=== PATIENT | female | born 1940 | race Caucasian/White ===

== ENCOUNTER 2019-11-01 07:02 | Outpatient (CLI) | payer MEDICARE, SELFPAY ==
--- NOTE | ~2019-11-01 | MR_ITS ---
EXAMINATION: MR lumbar spine wo con DATE: 11/01/2019 08:45 INDICATION: Low back pain radiating into the left hip TECHNIQUE: Magnetic resonance imaging (MRI) of the lumbar spine was performed without intravenous con trast. Sequences included sagittal T2-weighted FSE, sagittal T2-weighted FS FSE, sagittal T1-weighted FSE, and axial T2-weighted FSE. COMPARISON: None FINDINGS: 15 degree lumbar levoscoliosis. 2 mm anterolisthesis L5 on S1. 1-2 mm anterolisthesis L3 on L4. Schmo rl's node at the superior endplate of L5. Vertebral body heights are normal. Moderate disc height los s at L4-L5, mild to moderate left-sided predominant disc height loss at L5-S1 and mild to moderate ri ght-sided predominant disc height loss at L2-L3 and L3-L4. Mild disc height loss at L1-L2 and minimal disc height loss at T9-T10 through T12-L1. Fibrovascular degenerative endplate changes at a few leve ls most prominent at the right side of L2-L3. T1 hyperintense hemangiomas at T12, L1 and L5. Marrow s ignal is otherwise unremarkable. The conus medullaris terminates at L1-L2. There is normal signal in the caudal spinal cord. A couple subcentimeter T2 hyperintense right renal cysts. There are numerous scattered colonic diverticula. Paravertebral soft tissues are unremarkable. The following disc levels are specifically discussed: T12-L1: Small central disc protrusion. There is mild bilateral facet joint osteoarthritis. There is n o neural foraminal stenosis. There is mild central canal stenosis. L1-L2: Diffuse disc bulge. There is mild bilateral facet joint osteoarthritis. There is normal bilate ral neural foraminal stenosis. There is mild central canal stenosis. L2-L3: Disc is bulging. There is hypertrophy of the ligamentum flavum. There is mild bilateral facet joint osteoarthritis. There is mild bilateral neural foraminal stenosis. There is mild to moderate ce ntral canal stenosis. There is also narrowing of the left and right lateral recesses. L3-L4: Disc is bulging. There is hypertrophy of the ligamentum flavum. There is mild left and severe right facet joint osteoarthritis. There is mild left and moderate right neural foraminal stenosis. Th ere is mild central canal stenosis. There is also narrowing of the left and right lateral recesses. L4-L5: Disc is bulging. There is hypertrophy of the ligamentum flavum. There is severe bilateral face t joint osteoarthritis. There is moderate bilateral neural foraminal stenosis. There is mild to moder ate central canal stenosis. There is also narrowing of the left and right lateral recesses. L5-S1: Disc is bulging. There is hypertrophy of the ligamentum flavum. Left L5 transverse process is partially sacralized. There is severe bilateral facet joint osteoarthritis. There is mild right and s evere left neural foraminal stenosis. There is mild to moderate central canal stenosis. IMPRESSION: 1. Mild lumbar levoscoliosis with moderate spondylosis most notable for mild to moderate central lizz l stenosis and severe left neural foraminal stenosis at L5-S1. Reviewed, dictated and finalized at location A. IMPRESSION: 1. Mild lumbar levoscoliosis with moderate spondylosis most notable for mild to moderate central canal stenosis and severe left neural foraminal stenosis at L 5-S1.
== END 2019-11-01 07:03 | disposition home or self-care (01) ==
LOC: CHSIMG 07:04
PROVIDERS: PCP Internal Medicine; Visit Provider Internal Medicine
DX: M54.9 Dorsalgia, unspecified (principal)
CPT/HCPCS: 72148

== ENCOUNTER 2019-12-30 15:01 | Outpatient (CLI) | payer MEDICARE, SELFPAY ==
[2019-12-30 15:52] LABS: Lactate Dehydrogenase 188 U/L (81-234)
[2020-01-03 20:52] LABS: Kappa\\Lambda Light Chains 0.04 (0.26-1.65); Lambda Light Chain 352.2 mg/L (5.7-26.3)
[2020-01-04 11:33] LABS: Beta-2-Microglobulin 3.92 mg/L (<=2.51); Immunoglobulin A 56 mg/dL (70-320); Immunoglobulin G 1056 mg/dL (600-1540); Immunoglobulin M 35 mg/dL (50-300)
== END 2019-12-30 15:02 | disposition home or self-care (01) ==
LOC: CHSLAB 15:04
PROVIDERS: PCP Internal Medicine; Visit Provider Internal Medicine Hematology & Oncology
DX: D47.2 Monoclonal gammopathy (principal)
CPT/HCPCS: 36415; 82232; 82784; 83615; 83883; 86335

== ENCOUNTER 2020-01-05 08:15 | Outpatient (CLI) | payer MEDICARE, SELFPAY ==
[2020-01-11 20:14] LABS: Creatinine, 24 Hr Urine 0.76 g/24 h (0.50-2.15); Total Protein/Creatinine Ratio 97 mg/g creat (<115)
== END 2020-01-05 08:16 | disposition home or self-care (01) ==
LOC: CHSLAB 08:18
PROVIDERS: PCP Internal Medicine; Visit Provider Internal Medicine Hematology & Oncology
DX: D47.2 Monoclonal gammopathy (principal)
CPT/HCPCS: 81050; 82570; 84156; 84166

== ENCOUNTER 2020-01-13 14:46 | Outpatient (CLI) | payer MEDICARE, SELFPAY ==
--- NOTE | ~2020-01-13 | XR_ITS ---
EXAMINATION: BONE SURVEY/METASTATIC SURVEY DATE: 01/13/2020 INDICATION: Monoclonal gammopathy of unknown significance TECHNIQUE: A skeletal survey was performed including AP views of the chest, abdomen and pelvis; AP an d lateral/lateral swimmers views of the cervical, thoracic and lumbar spine; lateral view of the skul l, and AP and lateral views of the appendicular skeleton excluding the hands and feet. COMPARISON: None. FINDINGS: No abnormal lytic lesions are identified. There is a bone island in the right proximal tibi a. There is moderate cervical, thoracic, and lumbar spondylosis. Mild polyarticular osteoarthritis is noted. IMPRESSION: 1. No abnormal lytic lesions identified. Reviewed, dictated and finalized at location A.
[2020-01-13 15:27] LABS: Lactate Dehydrogenase 203 U/L (81-234)
== END 2020-01-13 14:47 | disposition home or self-care (01) ==
PROVIDERS: PCP Internal Medicine; Visit Provider Internal Medicine Hematology & Oncology
DX: D47.2 Monoclonal gammopathy (principal)
CPT/HCPCS: 36415; 77075; 83615

== ENCOUNTER 2020-10-24 09:43 | Outpatient (CLI) | payer MEDICARE, SELFPAY ==
--- NOTE | ~2020-10-24 | US_ITS ---
US retroperitoneal comp 10/24/2020 10:03 Procedure: Realtime transabdominal ultrasound of the kidneys and bladder. Indication: Decreased renal function Comparison: No prior studies for comparison. Findings: Renal echotexture is normal bilaterally without hydronephrosis, contour deforming mass. The re is an echogenic focus in the lower pole of the left kidney measuring 4 mm, possibly nonobstructing renal stone. The right kidney measures 8.5 cm and left kidney measures 7.6 cm. Bladder within shankar l limits. Impression: 1: Focal echogenic 4 mm lesion lower pole left kidney, possibly nonobstructing stone. Reviewed, dictated and finalized at location A. Impression: 1: Focal echogenic 4 mm lesion lower pole left kidney, possibly nonobstructing stone.
== END 2020-10-24 09:44 | disposition home or self-care (01) ==
LOC: CHSIMG 09:44
PROVIDERS: PCP Internal Medicine; Visit Provider Internal Medicine
DX: R94.4 Abnormal results of kidney function studies (principal)
CPT/HCPCS: 76770

== ENCOUNTER 2022-01-08 08:00 | Outpatient (CLI) | payer MEDICARE, SELFPAY ==
[2022-01-08 08:15] LABS: Basophils Absolute Auto 0.07 K/mm3 (0.00-0.10); Basophils Percent Auto 0.7 % (0.0-1.0); Eosinophils Absolute Auto 0.11 K/mm3 (0.02-0.50); Eosinophils Percent Auto 1.1 % (1.0-6.0); Hematocrit 36.4 % (35.0-42.0); Hemoglobin 11.6 g/dL (11.7-13.8); Immature Granulocyte Absolute 0.03 K/mm3 (0.00-0.00); Immature Granulocyte Percent A 0.3 % (0.0-0.0); Lymphocytes Absolute Auto 4.23 K/mm3 (1.10-4.50); Lymphocytes Percent Auto 43.8 % (18.0-42.0); Mean Corpuscular HGB Conc 31.9 g/dL (32.0-36.0); Mean Corpuscular Hemoglobin 31.1 pg (27.0-31.0); Mean Corpuscular Volume 97.6 fL (78.0-102.0); Mean Platelet Volume 9.1 fl (9.2-11.8); Monocytes Percent Auto 6.2 % (2.0-11.0); Neutrophils Absolute Auto 4.6 K/mm3 (1.7-7.2); Neutrophils Percent Auto 47.9 % (50.0-70.0); Platelet Count Result 255 K/mm3 (150-420); Red Blood Count 3.73 M/mm3 (4.20-5.40); Red Cell Distribution Width 14.6 % (11.6-14.4); White Blood Count 9.7 K/mm3 (4.8-10.8)
[2022-01-08 08:58] LABS: Alanine Aminotransferase 25 U/L (14-59); Albumin Level 3.7 g/dL (3.4-5.0); Alkaline Phosphatase 75 U/L (46-116); Anion Gap 3 mmol/L (8-16); Aspartate Amino Transferase 19 U/L (15-37); Bilirubin,Total 0.6 mg/dL (0.00-1.00); Blood Urea Nitrogen 16 mg/dL (7-18); Calcium 9.3 mg/dL (8.5-10.1); Carbon Dioxide 32 mmol/L (21-32); Chloride 105 mmol/L (98-108); Estimated Glomerular Filt Rate 42; Glucose 97 mg/dL (70-99); Lactate Dehydrogenase 185 U/L (81-234); Osmolality Calculated 291 mOsm/kg (285-295); Potassium 4.1 mmol/L (3.5-5.1); Sodium 140 mmol/L (136-145); Total Protein 6.5 g/dL (6.4-8.2)
[2022-01-10 19:46] LABS: Beta-2-Microglobulin 3.82 mg/L (<=2.51); Immunoglobulin A 43 mg/dL (70-320); Immunoglobulin G 1064 mg/dL (600-1540); Immunoglobulin M 31 mg/dL (50-300)
[2022-01-11 16:09] LABS: Abnormal Protein Band 1 0.5 g/dL; Albumin 3.8 g/dL (3.8-4.8); Alpha 1 Globulin 0.3 g/dL (0.2-0.3); Alpha 2 Globulin 0.9 g/dL (0.5-0.9); Beta 1 Globulin 0.4 g/dL (0.4-0.6); Gamma Globulin 0.9 g/dL (0.8-1.7); Protein, Total 6.5 g/dL (6.1-8.1)
[2022-01-12 08:54] LABS: Kappa\\Lambda Light Chains 0.03 (0.26-1.65); Lambda Light Chain 377.3 mg/L (5.7-26.3)
== END 2022-01-08 08:01 | disposition home or self-care (01) ==
LOC: CHSLAB 08:02
PROVIDERS: PCP Internal Medicine; Visit Provider Internal Medicine Hematology & Oncology
DX: D47.2 Monoclonal gammopathy (principal)
CPT/HCPCS: 36415; 80053; 82232; 82784; 83615; 83883; 84155; 84165; 85025

== ENCOUNTER 2022-12-16 11:34 | Outpatient (CLI) | payer MEDICARE, SELFPAY ==
[2022-12-16 11:54] LABS: Basophils Absolute Auto 0.05 K/mm3 (0.00-0.10); Basophils Percent Auto 0.5 % (0.0-1.0); Eosinophils Absolute Auto 0.14 K/mm3 (0.02-0.50); Eosinophils Percent Auto 1.5 % (1.0-6.0); Hematocrit 35.2 % (35.0-42.0); Immature Granulocyte Absolute 0.03 K/mm3 (0.00-0.00); Immature Granulocyte Percent A 0.3 % (0.0-0.0); Lymphocytes Absolute Auto 4.67 K/mm3 (1.10-4.50); Lymphocytes Percent Auto 49.9 % (18.0-42.0); Mean Corpuscular HGB Conc 31.3 g/dL (32.0-36.0); Mean Corpuscular Hemoglobin 30.8 pg (27.0-31.0); Mean Corpuscular Volume 98.6 fL (78.0-102.0); Mean Platelet Volume 9.5 fl (9.2-11.8); Monocytes Absolute Auto 0.57 K/mm3 (0.10-0.90); Monocytes Percent Auto 6.1 % (2.0-11.0); Neutrophils Absolute Auto 3.9 K/mm3 (1.7-7.2); Neutrophils Percent Auto 41.7 % (50.0-70.0); Platelet Count Result 265 K/mm3 (150-420); Red Blood Count 3.57 M/mm3 (4.20-5.40); Red Cell Distribution Width 14.4 % (11.6-14.4); White Blood Count 9.4 K/mm3 (4.8-10.8)
[2022-12-16 12:25] LABS: Alanine Aminotransferase 25 U/L (14-59); Albumin Level 3.5 g/dL (3.4-5.0); Alkaline Phosphatase 72 U/L (46-116); Anion Gap 5 mmol/L (8-16); Aspartate Amino Transferase 20 U/L (15-37); Bilirubin,Total 0.5 mg/dL (0.00-1.00); Blood Urea Nitrogen 27 mg/dL (7-18); Calcium 9.5 mg/dL (8.5-10.1); Carbon Dioxide 29 mmol/L (21-32); Chloride 105 mmol/L (98-108); Estimated Glomerular Filt Rate 41; Glucose 111 mg/dL (70-99); Lactate Dehydrogenase 198 U/L (81-234); Osmolality Calculated 294 mOsm/kg (285-295); Potassium 4.3 mmol/L (3.5-5.1); Sodium 139 mmol/L (136-145); Total Protein 6.4 g/dL (6.4-8.2)
[2022-12-19 12:59] LABS: Abnormal Protein Band 1 0.6 g/dL; Albumin 3.9 g/dL (3.8-4.8); Alpha 1 Globulin 0.3 g/dL (0.2-0.3); Alpha 2 Globulin 0.8 g/dL (0.5-0.9); Beta 1 Globulin 0.4 g/dL (0.4-0.6); Protein, Total 6.5 g/dL (6.1-8.1)
[2022-12-20 00:09] LABS: Kappa\\Lambda Light Chains 0.03 (0.26-1.65); Lambda Light Chain 427.2 mg/L (5.7-26.3)
[2022-12-20 18:53] LABS: Immunoglobulin A 40 mg/dL (70-320); Immunoglobulin G 1085 mg/dL (600-1540); Immunoglobulin M 25 mg/dL (50-300)
== END 2022-12-16 11:35 | disposition home or self-care (01) ==
LOC: CHSLAB 11:37
PROVIDERS: PCP Internal Medicine; Visit Provider Internal Medicine Hematology & Oncology
DX: D47.2 Monoclonal gammopathy (principal)
CPT/HCPCS: 36415; 80053; 82232; 82784; 83615; 83883; 84155; 84165; 85025

== ENCOUNTER 2022-12-19 12:16 | Outpatient (CLI) | payer MEDICARE, SELFPAY ==
[2022-12-19 13:07] LABS: Basophils Absolute Auto 0.05 K/mm3 (0.00-0.10); Basophils Percent Auto 0.6 % (0.0-1.0); Eosinophils Percent Auto 1.1 % (1.0-6.0); Hematocrit 35.7 % (35.0-42.0); Hemoglobin 11.5 g/dL (11.7-13.8); Immature Granulocyte Absolute 0.02 K/mm3 (0.00-0.00); Immature Granulocyte Percent A 0.2 % (0.0-0.0); Immature Reticulocyte Fraction 4.8 % (2.0-16.52); Lymphocytes Absolute Auto 4.45 K/mm3 (1.10-4.50); Lymphocytes Percent Auto 49.2 % (18.0-42.0); Mean Corpuscular HGB Conc 32.2 g/dL (32.0-36.0); Mean Corpuscular Hemoglobin 31.2 pg (27.0-31.0); Mean Corpuscular Volume 96.7 fL (78.0-102.0); Mean Platelet Volume 9.9 fl (9.2-11.8); Monocytes Absolute Auto 0.56 K/mm3 (0.10-0.90); Monocytes Percent Auto 6.2 % (2.0-11.0); Neutrophils Absolute Auto 3.9 K/mm3 (1.7-7.2); Neutrophils Percent Auto 42.7 % (50.0-70.0); Platelet Count Result 297 K/mm3 (150-420); Red Blood Count 3.69 M/mm3 (4.20-5.40); Red Cell Distribution Width 14.2 % (11.6-14.4); Reticulocyte Hemoglobin Conten 34.8 pg (28.0-35.0); Reticulocyte Percent 1.17 % (0.50-1.50); Reticulocytes Absolute 0.04 M/mm3 (0.02-0.1); White Blood Count 9.1 K/mm3 (4.8-10.8)
[2022-12-19 13:28] LABS: Ferritin 33 ng/mL (8-252); Iron 66 ug/dL (50-170); Percent Iron Saturation 24 % (12-57)
[2022-12-22 12:47] LABS: Erythropoietin (EPO) 8.2 mIU/mL (2.6-18.5)
== END 2022-12-19 12:17 | disposition home or self-care (01) ==
LOC: CHSLAB 12:19
PROVIDERS: PCP Internal Medicine; Visit Provider Internal Medicine Hematology & Oncology
DX: D47.2 Monoclonal gammopathy (principal); D64.9 Anemia, unspecified
CPT/HCPCS: 36415; 82668; 82728; 83540; 83550; 85025; 85046

== ENCOUNTER 2023-08-05 09:16 | Outpatient (CLI) | payer MEDICARE, SELFPAY ==
[2023-08-05 09:46] LABS: Basophils Absolute Auto 0.05 K/mm3 (0.00-0.10); Basophils Percent Auto 0.4 % (0.0-1.0); Eosinophils Absolute Auto 0.14 K/mm3 (0.02-0.50); Eosinophils Percent Auto 1.2 % (1.0-6.0); Hematocrit 34.7 % (35.0-42.0); Immature Granulocyte Absolute 0.06 K/mm3 (0.00-0.00); Immature Granulocyte Percent A 0.5 % (0.0-0.0); Lymphocytes Absolute Auto 4.73 K/mm3 (1.10-4.50); Lymphocytes Percent Auto 40.6 % (18.0-42.0); Mean Corpuscular HGB Conc 31.7 g/dL (32-36); Mean Corpuscular Hemoglobin 30.9 pg (27.0-31.0); Mean Corpuscular Volume 97.5 fL (78.0-102.0); Mean Platelet Volume 9.6 fl (9.2-11.8); Monocytes Absolute Auto 0.83 K/mm3 (0.10-0.90); Monocytes Percent Auto 7.1 % (2.0-11.0); Neutrophils Absolute Auto 5.84 K/mm3 (1.70-7.20); Neutrophils Percent Auto 50.2 % (50.0-70.0); Platelet Count Result 287 K/mm3 (150-420); Red Blood Count 3.56 M/mm3 (4.20-5.40); Red Cell Distribution Width 13.9 % (11.6-14.4); White Blood Count 11.7 K/mm3 (4.8-10.8)
[2023-08-05 10:49] LABS: Alanine Aminotransferase 27 U/L (14-59); Albumin Level 3.6 g/dL (3.4-5.0); Alkaline Phosphatase 79 U/L (46-116); Anion Gap 6 mmol/L (4-12); Aspartate Amino Transferase 21 U/L (15-37); Bilirubin,Total 0.5 mg/dL (0.00-1.00); Blood Urea Nitrogen 24 mg/dL (7-18); Calcium 8.8 mg/dL (8.5-10.1); Carbon Dioxide 31 mmol/L (21-32); Chloride 104 mmol/L (98-108); Estimated Glomerular Filt Rate 33; Ferritin 53 ng/mL (8-252); Glucose 101 mg/dL (70-99); Iron 27 ug/dL (50-170); Osmolality Calculated 296 mOsm/kg (285-295); Percent Iron Saturation 11 % (12-57); Potassium 4.4 mmol/L (3.5-5.1); Sodium 141 mmol/L (136-145); Total Protein 6.6 g/dL (6.4-8.2); Vitamin B12 1554 pg/mL (193-986)
[2023-08-05 10:54] LABS: Folic Acid > 20.0 ng/mL (8.6->20)
[2023-08-07 06:53] LABS: Protein, Total 6.3 g/dL (6.1-8.1)
[2023-08-07 13:18] LABS: Kappa\\Lambda Light Chains 0.02 (0.26-1.65); Lambda Light Chain 529.3 mg/L (5.7-26.3)
[2023-08-07 13:28] LABS: Abnormal Protein Band 1 0.6 g/dL (NONE DETECTED); Albumin 3.6 g/dL (3.8-4.8); Alpha 1 Globulin 0.3 g/dL (0.2-0.3); Alpha 2 Globulin 0.8 g/dL (0.5-0.9); Beta 1 Globulin 0.4 g/dL (0.4-0.6); Gamma Globulin 0.9 g/dL (0.8-1.7)
[2023-08-20 13:23] LABS: Immunoglobulin A 36 mg/dL (70-320); Immunoglobulin G 1153 mg/dL (600-1540); Immunoglobulin M 25 mg/dL (50-300)
== END 2023-08-05 09:17 | disposition home or self-care (01) ==
LOC: CHSLAB 09:18
PROVIDERS: PCP Internal Medicine; Visit Provider Internal Medicine Hematology
DX: D47.2 Monoclonal gammopathy (principal); R53.83 Other fatigue; D64.9 Anemia, unspecified
CPT/HCPCS: 36415; 80053; 82607; 82728; 82746; 82784; 83540; 83550; 83883; 84155; 84165; 85025; 86334